=== PATIENT | male | born 1955 | race Caucasian/White ===

== ENCOUNTER 2023-01-13 19:03 | Emergency (ER) | payer OTHER, MEDICARE ==
[2023-01-13 19:18] VITALS: TEMP 99.2
[2023-01-13] MEDS ORDERED: IBUPROFEN 400 MG TAB PO STA (20:00)
[2023-01-13] MEDS ORDERED: ACETAMINOPHEN TAB 325 MG TAB PO STA (20:00)
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
[2023-01-13] MEDS ORDERED: LIDOCAINE 5% PATCH TOPICAL SCH (23:15)
[2023-01-14 00:34] VITALS: BP 131/75; PULSE 64; RESP 18
== END 2023-01-13 23:20 | disposition home or self-care (01) ==
LOC: EC 19:03
DX: R07.81 Pleurodynia (principal); I10 Essential (primary) hypertension; V49.40XA Driver injured in collision with unspecified motor vehicles in traffic accident, initial encounter
CPT/HCPCS: 36415; 71046; 84484; 93005; 99284